=== PATIENT | male | born 1960 | race Caucasian/White ===

== ENCOUNTER → 2017-10-04 | Outpatient (CLI) | payer OTHER ==
--- NOTE | 2017-10-04 23:42 | MR ---
EXAMINATION TYPE: MR shoulder RT wo con DATE OF EXAM: 10/04/2017 COMPARISON: NONE HISTORY: Fell Down stairs 09/14/2017, Pain with Limited ROM TECHNIQUE: Multiplanar, multisequence imaging of the right shoulder is performed without contrast. FINDINGS: There is thinning and increased signal in this subscapularis tendon. Biceps tendon is not seen to any extent in the bicipital groove. There is obliteration of the subacromial joint space. There is retra ction of the supraspinatus tendon. There is shoulder joint effusion. There is superior subluxation of the humeral head. I see no fracture. IMPRESSION: There is a very large rotator cuff tear with retraction of the supraspinatus tendon. There is at leas t a partial tear and probably almost complete tear of the subscapularis tendon. Moderate joint effusi on. Biceps tendon tear. Severe subacromial joint space narrowing and impingement.
== END | disposition home or self-care (01) ==
LOC: RADMRIMAIN 20:27
PROVIDERS: ATTEND Orthopaedic Surgery
DX: M75.101 Unspecified rotator cuff tear or rupture of right shoulder, not specified as traumatic (principal); S46.219A Strain of muscle, fascia and tendon of other parts of biceps, unspecified arm, initial encounter; M67.813 Other specified disorders of tendon, right shoulder

== ENCOUNTER 2017-11-23 09:11 | Day surgery (SDC) | payer OTHER ==
[2017-11-20 08:36] VITALS: BMI 24.3
[~2017-11-23 09:11] MED LIST: HYDROmorphone 0.5 MG/0.5 ML SYRINGE IVP PRN; LACTATED RINGERS 1,000 ML IV SCH; MORPHINE SULFATE 4 MG/ML SYRINGE IV PRN; Pre Op ABX Message 1 EACH MISC MISCELLANE ONE
[2017-11-23] MEDS ORDERED: ONDANSETRON 4 MG/2 ML VIAL ONE (09:17)
[2017-11-23] MEDS ORDERED: LIDOCAINE 1% 20 ML VIAL (10MG/ML) FOR IV START INTRADERMA ONE (09:44)
[2017-11-23] MEDS ORDERED: MIDAZOLAM 2 MG/2 ML VIAL ONE ×2 (10:00→11:04)
[2017-11-23] MEDS ORDERED: ONDANSETRON 4 MG/2 ML VIAL IVP ONE (10:15)
[2017-11-23] MEDS ORDERED: ROPIVACAINE 5 MG/ML 30 ML VIAL ONE (11:04)
[2017-11-23] MEDS ORDERED: LIDOCAINE 1% INJ 10MG/ML (20 ML MDV) ONE (11:04)
[2017-11-23] MEDS ORDERED: SUCCINYLCHOLINE CHLORIDE 100 MG/5 ML SYR IV ONE (11:04)
[2017-11-23] MEDS ORDERED: PROPOFOL 10 MG/ML 20 ML VIAL IV ONE (11:04)
[2017-11-23] MEDS ORDERED: ePHEDrine SULFATE/0.9% NACL/PF 50 MG/5 ML SYRINGE IV ONE (11:04)
[2017-11-23] MEDS ORDERED: BUPIVACAINE (PF) 0.25% 30 ML VIAL INTRAARTIC ONE (11:04)
[2017-11-23] MEDS ORDERED: fentaNYL (PF) 50 MCG/ML 2 ML AMP ONE (11:04)
[2017-11-23] MEDS ORDERED: ceFAZolin 1,000 MG/50 ML BAG (PMX) IVPB ONE (11:20)
[2017-11-23 12:53] VITALS: RESP 18; TEMP 98
[2017-11-23] MEDS ORDERED: LACTATED RINGERS 1,000 ML IV ONE ×2 (12:54)
[2017-11-23 14:40] VITALS: BP 135/82; PULSE 108
--- NOTE | 2017-11-23 14:49 | OP ---
OPERATIVE REPORT DATE OF PROCEDURE: 11/23/2017 PREOPERATIVE DIAGNOSES: 1. Right shoulder full-thickness rotator cuff tear. 2. Right shoulder medial subluxation long head of the biceps tendon. 3. Right shoulder superior labral tear. 4. Right shoulder subacromial impingement. POSTOPERATIVE DIAGNOSIS: 1. Right shoulder full-thickness tear of the supraspinatus and infraspinatus measuring 3 cm x 3 cm. 2. Right shoulder type 2 displaced superior labral tear. 3. Right shoulder medial dislocation of the proximal longhead of the biceps tendon. 4. Right shoulder type 2 anterolateral acromial spur. PROCEDURE PERFORMED: 1. Right shoulder arthroscopic rotator cuff repair, 3 cm x 3 cm tear. 2. Right shoulder arthroscopic acromioplasty. 3. Right shoulder arthroscopic biceps tenotomy. 4. Right shoulder arthroscopic anterior superior and posterior labral debridement. SURGEON: Lamine Harris. CHIP WASHER: Uli PEACOCK. ANESTHESIA: General endotracheal. ESTIMATED BLOOD LOSS: Minimal. TOURNIQUET: None. DRAINS: None. COMPLICATIONS: None apparent. DISPOSITION: Postanesthesia care unit. Examination under anesthesia, right shoulder elevation 150 degrees, external rotation at the side was to 30 degrees, external rotation at 90 degrees, reduction was to 90 degrees, internal rotation at 90 degrees, reduction was a 60 degrees, sulcus less than 1 cm., anterior translation glenoid face, posterior translation glenoid face. ARTHROSCOPIC FINDINGS RIGHT SHOULDER: 1. Superior labrum, significantly displaced type 2 superior labral tear tearing both anterior post of the biceps anchor. The biceps anchor was not intact. It was readily displaceable. I also had a complete medial dislocation of the intra- articular portion of the longhead of the biceps tendon. The superior subscapularis had fraying and approximately 10% tear of the superior subscapularis. The remaining subscapularis was intact. 2. Anterior inferior labrum, normal glenoid labral attachment. 3. Posterior labrum, tearing of the posterior labrum from the 9 o'clock position up to the 12 o'clock position on the glenoid face. 4. Humeral head cartilage is normal. 5. Rotator cuff, large full-thickness tear of the entire supraspinatus and the anterior infraspinatus measuring 3 cm x 3 cm with retraction just lateral to the glenoid. 6. Glenoid face cartilage showed diffuse grade 1 change. 7. Subacromial space, significant fraying of the undersurface of the coracoacromial ligament with a type 2 anterolateral acromial spur. INDICATIONS: Mr. Rowley is a very pleasant 57-year-old male with right shoulder pain. Sustained injury to the shoulder years ago. Noted into increased weakness and significant pain in the shoulder. He has been through a fairly significant course of nonoperative management up to this point. Physical examination and MRI reveal tearing of the superior labrum, medial subluxation of the longhead of the biceps tendon as well as a large rotator cuff tear. At this point in time, patient feels as if he has failed nonoperative treatment and would like to proceed with operative intervention. Long discussion was held with the patient with regard to treatment options. The risks of procedure were all discussed with him in detail. These risks included, but were not limited to risk of infection, nerve damage, bleeding, pain, and a small risk of deep vein thrombosis which could lead to fatal pulmonary embolism. Further risks include lack of healing in the rotator cuff and the possibility for biceps contour change with a biceps tenotomy. The patient understands the operation as well as the fact that there is no guarantee of improvement of his symptoms. An appropriate informed consent was obtained. DESCRIPTION OF THE PROCEDURE: Patient identified in preoperative holding area. Surgical sites marked by both the patient and myself. He was given 2 g of Ancef IV for prophylactic purposes. He was then transferred to the operative suite, was placed supine on the operative table. Patient was then intubated endotracheally and received general anesthesia throughout the operative procedure. Examination under anesthesia was then performed and the findings were noted above. The patient was then placed into the beach chair position well-padded in preparation for surgery. Great care was also taken to ensure the cervical spine is in neutral alignment, well-padded and maintained that way throughout the operative procedure. Great care was also taken to ensure that his legs were appropriately padded as well. Patient's right upper extremity is then prepped and draped in the usual sterile fashion. Standard surgical pause was then undertaken to ensure that appropriate preoperative antibiotics had been given and that we are operating on the correct site. All staff in the room were in agreement and we proceeded. The acromion as well as the AC joint and coracoid were marked with surgical pen. The skin of the anticipated portal sites were also marked surgical pen. The skin of the anticipated port sites were then injected with 0.25% Marcaine with epinephrine. I then proceeded to make a posterior portal. A 30 degree arthroscope was introduced in the glenohumeral joint through this portal. The arthroscopic pump pressure was set at 44 mmHg, maintained at that level throughout the entire case. Utilizing an 18-gauge spinal needle, topical localized placement, the anterior superior portal was made. This was just underneath the biceps tendon, high in the rotator interval. A small 2.75 mm cannula was then placed. The outflow was then done through this cannula. Diagnostic arthroscopy of the shoulder was then performed. The findings were noted as above. Great care was taken to probe superior labral complex as well as biceps anchor. The biceps anchor was not firmly attached. Significant displaced tearing of the superior labrum. This extended both anterior and portion to the biceps anchor. The intra- articular portion of the longhead of the biceps tendon was completely dislocated out of the bicipital groove. At this point, I proceeded with a biceps tenotomy. The biceps was tenotomized near its attachment on the supraglenoid tubercle. This was done utilizing the ArthroCare wand. I then proceeded to debride the torn loose tissue of superior labrum. This was debrided anteriorly, superiorly and posteriorly back to stable tissue. I then inspect of the subscapularis. He had significant fraying of the superior rolled border of the subscapularis and a very small approximate 10% tear of the superior aspect of subscapularis. The remaining aspect of the subscapularis had a good attachment to the lesser tuberosity. At this point, I then inspected the rest of the rotator cuff from intra-articular. He did have a large full-thickness tear of the supraspinatus and the infraspinatus. This tear was debrided very gently from intra-articular utilizing synovial shaver. At this point time, no further work was deemed necessary from intra-articular. The arthroscope was removed from the glenohumeral joint utilizing the same posterior skin incision was placed in the subacromial space. Utilizing an 18-gauge spinal needle topical localized placement, a lateral portal was made under direct visualization. Subacromial bursectomy was then performed utilizing synovial shaver as well as the ArthroCare wand. There was significant fraying of the undersurface of the coracoacromial ligament. This was then taken down utilizing the ArthroCare wand. This exposed an underlying type 2 anterolateral acromial spur. I then proceed with an acromioplasty. Using a synovial shaver in a lissy-type fashion, the acromioplasty was completed. When the acromioplasty was complete, the arthroscope was placed in the lateral portal. The shaver placed posteriorly to ensure that was adequate and coplanar with the posterior aspect of the acromion. I then proceeded with repair of the rotator cuff tear. He did have a large full- thickness tear of the supraspinatus and infraspinatus. This measured approximately 3 cm x 3 cm. The footprint of the greater tuberosity was then debrided of all devitalized tissue utilizing synovial shaver as well as the ArthroCare wand. I then performed a light decortication of the greater tuberosity utilizing synovial shaver in a lissy-type fashion. This provided a nice bleeding surface with repair. I then placed a small microfracture holes along the articular margin to again enhance healing of the repair. I then utilized scorpion suture passer and placed Arthrex fiber tape suture in inverted horizontal mattress fashion in the posterior 1/3 of the tear. The sutures were shuttled out through the posterior portal. I then placed a second Arthrex fiber tape suture in inverted horizontal mattress fashion in the central 3rd of the tear. The sutures were also shuttled out through the posterior portal. I then again utilized scorpion suture passer and placed Arthrex fiber tape suture in inverted horizontal mattress fashion in the anterior 1/3 of the tear. These sutures were shuttled out through the anterior portal. I then proceeded to make a anterolateral portal. Again, an 18-gauge spinal needle was utilized to optimally localize the placement. This was made just off the anterolateral angle of the acromion. The arthroscope was then moved to the anterolateral portal. The posterior sutures, FiberTape sutures were shuttled out through the lateral portal. The awl was then placed in the most posterior lateral aspect of the footprint. He had excellent bone quality. An Arthrex 4.75 mm bio SwiveLock anchor was chosen. The posterior FiberTape sutures were shuttled through the anchor and the anchor placed with excellent purchase in bone. This brought about the posterior third of the tear down very nicely and most posterior lateral aspect of the footprint. I then moved the arthroscope to the lateral portal and brought the middle sutures out through the anterolateral portal. The awl was then placed in the central third of the greater tuberosity approximately 1 cm anterior to the posterior anchor. Again, he had excellent bone quality. An Arthrex 4.75 mm bio SwiveLock anchor was again chosen. The middle FiberTape sutures were shuttled through the anchor. It was tensioned appropriately and then the anchor was placed with excellent purchase in bone. This brought the middle third of the tear down very nicely to the most lateral aspect of the footprint. I then brought the anterior sutures third sutures out through the anterior lateral portal. The awl was placed in the most anterolateral aspect of the footprint just posterior to the bicipital groove. Again, bone quality was excellent. Again, I chose an Arthrex 4.75 mm bio SwiveLock anchor. These FiberTape sutures were shuttled through the anchor, tensioned appropriately and the anchor was placed with excellent purchase in bone. At this point in time, I evaluated the repair. The rotator cuff had been repaired down very nicely to the most lateral aspect of the footprint. All sutures had good tension. All of the anchors had excellent purchase in bone. At this point in time, no further work was deemed necessary. The shoulder was thoroughly irrigated and then drained with an outflow cannula. The arthroscopic equipment was removed from the shoulder. The arthroscopic portals were then closed with 3-0 nylon interrupted suture. Sterile compressive dressings were applied. The patient's right upper extremity is then placed into a slingshot-type rotator cuff immobilizer. All sponge and needle counts were deemed correct prior to closure. The patient tolerated the procedure without apparent complication. He was transferred to the recovery room in stable condition. MMODL / IJN: [id number] /
== END 2017-11-23 14:53 | disposition home or self-care (01) ==
LOC: OR 09:11
PROVIDERS: ATTEND Orthopaedic Surgery Sports Medicine
DX: M75.121 Complete rotator cuff tear or rupture of right shoulder, not specified as traumatic (principal); M19.011 Primary osteoarthritis, right shoulder; S43.491A Other sprain of right shoulder joint, initial encounter; S46.111A Strain of muscle, fascia and tendon of long head of biceps, right arm, initial encounter; W00.0XXA Fall on same level due to ice and snow, initial encounter; Y93.H1 Activity, digging, shoveling and raking; Y92.008 Other place in unspecified non-institutional (private) residence as the place of occurrence of the external cause; M75.41 Impingement syndrome of right shoulder; I10 Essential (primary) hypertension; M25.411 Effusion, right shoulder; H91.90 Unspecified hearing loss, unspecified ear; Z79.1 Long term (current) use of non-steroidal anti-inflammatories (NSAID); Z79.899 Other long term (current) drug therapy
CPT/HCPCS: 64415; 29827; 29826; C1713 ×3; J2250; J2405; J2001; J3010; J0690; J2795; J0330; J2704

== ENCOUNTER 2022-07-22 10:26 | Day surgery (SDC) | payer OTHER ==
[2022-07-22] MEDS ORDERED: LACTATED RINGERS 1,000 ML IV SCH (10:55)
[2022-07-22 11:04] VITALS: RESP 16; TEMP 97
[2022-07-22] MEDS ORDERED: LIDOCAINE 2% INJ 20 MG/ML (2 ML VIAL) ONE (12:08)
[2022-07-22] MEDS ORDERED: PROPOFOL 10 MG/ML 20 ML VIAL IV ONE (12:08)
--- NOTE | 2022-07-22 12:24 | P.PCN ---
Date of Procedure: 07/22/22 Procedure(s) Performed: BRIEF HISTORY: Patient is a 61-year-old pleasant white male scheduled for an elective colonoscopy as a part of screening for colon cancer PROCEDURE PERFORMED: Colonoscopy with snare polypectomy. PREOPERATIVE DIAGNOSIS: Screening for colon cancer. IV sedation per Anesthesia. PROCEDURE: After informed consent was obtained, the patient, was brought into the endoscopy unit. IV sedation was administered by Anesthesia under continuous monitoring. Digital rectal examination was normal. Initially the Olympus CF-160 flexible video colonoscope was then inserted in the rectum, gradually advanced into the cecum without any difficulty. Careful examination was performed as the scope was gradually being withdrawn. Ileocecal valve and the appendiceal orifice were visualized and appeared normal. Prep was excellent. Mucosa of the cecum, normal. On the ileocecal valve there was a 1 cm flat polyp removed by snare polypectomy. Rest of the ascending colon, transverse colon, descending colon, sigmoid colon, and rectum appeared normal. In the rectum there was a 5 mm and 7 mm polyp removed by snare polypectomy. Scattered sigmoid diverticulosis seen. Retroflexion was performed in the rectum and no lesions were seen. The patient tolerated the procedure well. IMPRESSION: 1 cm polyp on the ileocecal valve status post polypectomy 5 mm and 7 mm rectal polyp status post-polypectomy Scattered sigmoid diverticulosis RECOMMENDATIONS: Findings of this examination were discussed with the patient as well as his family. He was advised to follow with the biopsy results. If the biopsy results adenoma he can have a repeat colonoscopy in 3-5 years.
[2022-07-22 12:41] VITALS: BP 111/75; PULSE 90
== END 2022-07-22 13:01 | disposition home or self-care (01) ==
LOC: ORWHC2ENDO 10:26
PROVIDERS: ATTEND Internal Medicine Gastroenterology
DX: Z12.11 Encounter for screening for malignant neoplasm of colon (principal); D17.5 Benign lipomatous neoplasm of intra-abdominal organs; K62.1 Rectal polyp; K57.30 Diverticulosis of large intestine without perforation or abscess without bleeding; I10 Essential (primary) hypertension; Z86.73 Personal history of transient ischemic attack (TIA), and cerebral infarction without residual deficits; Z79.1 Long term (current) use of non-steroidal anti-inflammatories (NSAID); Z98.890 Other specified postprocedural states; Z79.899 Other long term (current) drug therapy
CPT/HCPCS: 88305; 45385; J2704; J2001